=== PATIENT | female | born 1980 | race Caucasian/White ===

== ENCOUNTER 2024-07-22 01:09 | Outpatient (CLI) | payer OTHER, SELFPAY ==
--- NOTE | 2024-07-22 06:30 | DI.RAD_ITS ---
Exam(s) XR FOOT RT COMPLETE EXAM: XR FOOT RT COMPLETE CLINICAL HISTORY: Toe injury,s99.921a. TECHNIQUE: 2D digital imaging was performed of the right foot. Three images were obtained. AP, obl ique and lateral views were obtained. COMPARISON: CR XR FOOT COMPLETE MIN 3V RT from 04/10/2024 CR XR FOOT COMPLETE MIN 3V RT from 05/05/2024 FINDINGS: BONES: No acute fracture is present. No bony destructive lesion is seen. JOINTS: No dislocation present. Mild degenerative changes are seen at the MTP joint. There is a smal l osteophyte at the dorsal aspect of the head of the 1st metatarsal. There is a well corticated dens ity seen on the dorsum of the foot overlying the 1st metatarsophalangeal joint which appears chronic. SOFT TISSUE: Normal. IMPRESSION: 1. No acute or healing fracture or dislocation. 2. 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 DATA REPOSITORY: RADIATION DOSE DELIVERED:
== END 2024-07-22 01:29 ==
LOC: DI 01:09
PROVIDERS: PCP Physician Assistant Medical; Visit Provider Podiatrist
DX: S99.921A Unspecified injury of right foot, initial encounter (principal); X58.XXXA Exposure to other specified factors, initial encounter
CPT/HCPCS: 73630